=== PATIENT | male | born 1955 | race Asian ===

== ENCOUNTER 2019-11-20 11:34 | Emergency (ER) | payer MEDICAID ==
[~2019-11-20] VITALS: Ht 157.5 cm; Wt 59.1 kg
[2019-11-20] MEDS ORDERED: HYDR-1475 PO (11:46)
[2019-11-20] MEDS ORDERED: ASPI-728 PO (11:46)
[2019-11-20] MEDS ORDERED: ATOR10TA84 PO (11:46)
[2019-11-20] MEDS ORDERED: LISI-660 PO (11:46)
[2019-11-20] MEDS ORDERED: LEVO25TA9 PO (11:46)
[2019-11-20] MEDS ORDERED: METO25 PO (12:10)
[2019-11-20] MEDS ORDERED: LEVO75 PO (12:10)
[2019-11-20] MEDS ORDERED: ATOR20TA86 PO (12:10)
[2019-11-20] MEDS ORDERED: LISI1TAB29 PO (12:41)
[2019-11-20] MEDS ORDERED: 0.9% SODIUM CHLORIDE 10 ML SYRINGE IVP PRN (12:45)
[2019-11-20 12:55] LABS: BASOPHILS % (AUTO) 1.2 % (0.0-2.0); EOSINOPHILS % (AUTO) 0.4 % (1.0-6.0); HEMATOCRIT 28.9 % (41-53); HEMOGLOBIN 9.6 g/dL (13.5-17.5); LYMPHOCYTES # (AUTO) 0.5 K/uL (1.0-4.8); LYMPHOCYTES % (AUTO) 6.1 % (22.0-44.0); MEAN CORPUSCULAR HEMOGLOBIN 26.3 pg (26.0-34.0); MEAN CORPUSCULAR HGB CONC 33.2 G/dL (31.0-37.0); MEAN CORPUSCULAR VOLUME 79 fL (80-100); MONOCYTES # (AUTO) 0.8 K/uL (0.1-1.0); MONOCYTES % (AUTO) 10.2 % (2.0-9.0); NEUTROPHILS # (AUTO) 6.2 K/uL (1.8-7.7); NEUTROPHILS % (AUTO) 82.1 % (40.0-70.0); PLATELET COUNT (AUTO) 293 K/uL (150-450); RED BLOOD CELL COUNT(AUTO) 3.64 MIL/uL (4.50-5.90); RED CELL DISTRIBUTION WIDTH 16.5 % (11.5-14.5)
[2019-11-20 13:02] LABS: ANION GAP 8 mmol/L (8-16); CALCIUM, TOTAL 8.2 mg/dL (8.8-10.5); CARBON DIOXIDE 25 mmol/L (22-29); CHLORIDE 94 mmol/L (98-107); CREATININE 1.28 mg/dL (0.60-1.30); GLOMERULAR FILTR. RATE CALC 57 mL/min (>60); GLUCOSE,RANDOM 126 mg/dL (70-110); POTASSIUM 3.2 mmol/L (3.5-5.1); SODIUM SERUM 127 mmol/L (136-145); UREA NITROGEN, BLOOD 12 mg/dL (7-18)
[2019-11-20 13:08] LABS: ALANINE AMINOTRANSFERASE 31 U/L (12-78); ALBUMIN 3.4 g/dL (3.4-5.0); ALKALINE PHOSPHATASE 73 U/L (46-116); ASPARTATE AMINOTRANSFERASE 38 U/L (15-37); BILIRUBIN,TOTAL 0.7 mg/dL (0.1-1.0); TOTAL PROTEIN, SERUM 6.7 g/dL (6.4-8.2)
[2019-11-20] MEDS ORDERED: IBUPROFEN 600 MG TABLET PO ONE (13:30)
[2019-11-20] MEDS ORDERED: ACETAMINOPHEN 325 MG TABLET PO ONE (13:30)
[2019-11-20] MEDS ORDERED: SODIUM CHLORIDE 0.9% 1,750 ML IV ONE (13:30)
[2019-11-20 13:33] LABS: LACTIC ACID 2.1 mmol/L (0.4-2.0)
[2019-11-20 13:50] LABS: INFLUENZA TYPE A NEGATIVE FOR TYPE A (NEGATIVE); INFLUENZA TYPE B NEGATIVE FOR TYPE B (NEGATIVE)
[2019-11-20] MEDS ORDERED: AMOX TR/POT CLAV 875 MG/125 MG TABLET PO ONE (14:15)
[2019-11-20 16:11] VITALS: BP 105/63
== END 2019-11-20 16:20 | disposition home or self-care (01) ==
LOC: EMS 11:35
DX: J40 Bronchitis, not specified as acute or chronic (principal); E78.00 Pure hypercholesterolemia, unspecified; I10 Essential (primary) hypertension; E03.9 Hypothyroidism, unspecified; Z79.82 Long term (current) use of aspirin; Z79.899 Other long term (current) drug therapy
CPT/HCPCS: 36415; 71045; 80053; 83605; 85025; 87040; 87804; 93005; 99285; J7030